=== PATIENT | female | born 1985 | race African-American/Black ===

== ENCOUNTER 2019-12-14 19:41 | Observation (INO) ==
[2019-12-14] MEDS ORDERED: MORPHINE 4 MG/1 ML VIAL IV STA (20:12)
[2019-12-14] MEDS ORDERED: SODIUM CHLORIDE 0.9% 500 ML IV STA (20:12)
[2019-12-14] MEDS ORDERED: ONDANSETRON 4 MG/2 ML VIAL IV STA (20:12)
[2019-12-14] MEDS ORDERED: PIPERACILLIN/TAZOBACTAM 3,375 MG in SODIUM CHLORIDE 0.9% 100 ML IV STA (20:12)
[2019-12-14 20:39] LABS: Basophils # 0.1 10*3/uL (0.0-0.2); Basophils % 0.5 % (0.0-0.8); Eosinophils # 0.2 10*3/uL (0.0-0.87); Eosinophils % 1.2 % (0.00-10.9); Hematocrit 39.9 VOL% (35.7-47.0); Hemoglobin 12.7 GM/DL (12.0-16.0); Immature Granulocytes % 0.5 %; Immature Granulocytes Absolute 0.07 #; Lymphocytes # 3.1 10*3/uL (1.4-4.0); Lymphocytes % 20.7 % (21.3-54.2); Mean Corpuscular HGB Conc 31.8 GM/DL (32-36); Mean Corpuscular Volume 80.4 FL (87-102); Mean Platelet Volume 11.5 FL (9.6-12.0); Monocytes % 9.3 % (1.7-12.7); Neutrophils % 67.8 % (38.7-73.9); Platelet Count 271 T/CUMM (130-400); Red Blood Count 4.96 MC/CUMM (3.8-5.5); Red Cell Distribution Width 15.1 % (9.3-17.3); White Blood Count 14.8 T/CUMM (4-12)
[2019-12-14 20:57] LABS: Albumin 3.4 G/DL (3.4-5.0); Bilirubin,Total 0.4 MG/DL (0.2-1.0); Calcium 9.4 MG/DL (8.5-10.1); Osmolality,Calculated 280.9 MOS/KG (273-304); Total Protein 8.6 G/DL (6.4-8.3)
[2019-12-14] MEDS ORDERED: INSULIN REGULAR 100 UNIT/ML IV STA (21:11)
[2019-12-14] MEDS ORDERED: SODIUM CHLORIDE 0.9% 2,000 ML IV ONE (21:22)
[2019-12-14] MEDS ORDERED: GLUCAGON 1 MG VIAL IM PRN (23:11)
[2019-12-14] MEDS ORDERED: ONDANSETRON 4 MG/2 ML VIAL IV PRN (23:11)
[2019-12-14] MEDS ORDERED: hydrALAZINE 20 MG/1 ML VIAL IV PRN (23:11)
[2019-12-14] MEDS ORDERED: PIPERACILLIN/TAZOBACTAM 3,375 MG in SODIUM CHLORIDE 0.9% 100 ML IV SCH (23:11)
[2019-12-14] MEDS ORDERED: DEXTROSE 50% 25 GM/50 ML VIAL IV PRN (23:11)
[2019-12-14] MEDS ORDERED: HYDROmorphone 2 MG/1 ML VIAL IV PRN (23:11)
[2019-12-14] MEDS ORDERED: ACETAMINOPHEN 325 MG TABLET PO PRN (23:11)
[2019-12-14] MEDS: SODIUM CHLORIDE 0.9% 1,000 ML IV SCH (23:43)
[2019-12-14] MEDS: INSULIN REGULAR 100 UNIT/ML SUBCUT SCH (23:56)
[2019-12-15] MEDS ORDERED: PIPERACILLIN/TAZOBACTAM 3,375 MG in SODIUM CHLORIDE 0.9% 100 ML IV SCH (05:30)
[2019-12-15] MEDS ORDERED: ALBUTEROL 2.5 MG/3 ML NEB RESP TX PRN (06:07)
[2019-12-15] MEDS: INSULIN REGULAR 100 UNIT/ML SUBCUT SCH ×4 (06:19→17:57)
[2019-12-15] MEDS ORDERED: DIAZEPAM 5 MG TABLET PO ONE (06:52)
[2019-12-15 06:56] LABS: Basophils # 0.1 10*3/uL (0.0-0.2); Basophils % 0.4 % (0.0-0.8); Eosinophils # 0.2 10*3/uL (0.0-0.87); Eosinophils % 1.6 % (0.00-10.9); Hematocrit 34.7 VOL% (35.7-47.0); Hemoglobin 10.8 GM/DL (12.0-16.0); Immature Granulocytes % 0.4 %; Immature Granulocytes Absolute 0.06 #; Lymphocytes # 3.4 10*3/uL (1.4-4.0); Lymphocytes % 23.8 % (21.3-54.2); Mean Corpuscular HGB Conc 31.1 GM/DL (32-36); Mean Platelet Volume 11.5 FL (9.6-12.0); Monocytes % 9.7 % (1.7-12.7); Neutrophils % 64.1 % (38.7-73.9); Platelet Count 230 T/CUMM (130-400); Red Blood Count 4.23 MC/CUMM (3.8-5.5); Red Cell Distribution Width 15.2 % (9.3-17.3); White Blood Count 14.2 T/CUMM (4-12)
[2019-12-15 07:28] LABS: Albumin 2.7 G/DL (3.4-5.0); Bilirubin,Total 0.5 MG/DL (0.2-1.0); Calcium 7.9 MG/DL (8.5-10.1); Osmolality,Calculated 284.4 MOS/KG (273-304); Total Protein 6.8 G/DL (6.4-8.3)
[2019-12-15] MEDS: ENOXAPARIN 40 MG/0.4 ML SYRINGE SUBCUT SCH (09:00)
[2019-12-15] MEDS: lisinopriL 2.5 MG TABLET PO SCH (09:10)
[2019-12-15] MEDS ORDERED: LIDOCAINE 1%/EPI INJ 20 ML VIAL ONE (09:38)
[2019-12-15] MEDS ORDERED: BUPIVACAINE MPF 0.25% 30 ML VIAL ONE (09:38)
[2019-12-15] MEDS ORDERED: ALBUTEROL/IPRATROPIUM 3 ML NEB RESP TX ONE ×2 (10:31→10:41)
[2019-12-15] MEDS ORDERED: LIDOCAINE 2% 5 ML VIAL ONE (10:39)
[2019-12-15] MEDS ORDERED: propofoL 200 MG/20 ML VIAL IV ONE (10:39)
[2019-12-15] MEDS ORDERED: ROCURONIUM 100 MG/10 ML VIAL IV ONE (10:40)
[2019-12-15] MEDS ORDERED: ONDANSETRON 4 MG/2 ML VIAL ONE (10:40)
[2019-12-15] MEDS ORDERED: ALBUTEROL INHALER 18 GM INH ONE (10:40)
[2019-12-15] MEDS ORDERED: SUCCINYLCHOLINE 200 MG/10 ML VIAL ONE (10:40)
[2019-12-15] MEDS ORDERED: MIDAZOLAM 2 MG/2 ML VIAL ONE (10:40)
[2019-12-15] MEDS ORDERED: fentaNYL 100 MCG/2 ML VIAL ONE (10:40)
[2019-12-15] MEDS ORDERED: PHENYLEPHRINE 0.125% NASAL DROPS 15 ML BOTTLE BOTH NARES ONE (10:40)
[2019-12-15] MEDS ORDERED: SEVOFLURANE 1 UNIT/15 MINUTE INH ONE (10:40)
[2019-12-15] MEDS ORDERED: INSULIN REGULAR 100 UNIT/ML ONE (11:19)
[2019-12-15] MEDS: SODIUM CHLORIDE 0.9% 1,000 ML IV SCH ×2 (12:49→15:11)
[2019-12-15] MEDS: PANTOPRAZOLE 40 MG TABLET PO SCH (15:06)
[2019-12-15] MEDS: SULFAMETHOX/TRIMETHOPRIM 800-160 MG TABLET PO SCH ×2 (15:06→21:06)
[2019-12-15] MEDS ORDERED: INSULIN GLARGINE 100 UNIT/ML SUBCUT SCH (21:00)
[2019-12-16] MEDS: INSULIN REGULAR 100 UNIT/ML SUBCUT SCH ×2 (00:59→06:32)
[2019-12-16] MEDS: SODIUM CHLORIDE 0.9% 1,000 ML IV SCH (01:00)
[2019-12-16 06:01] LABS: Risk Ratio 2.47; VLDL CHOLESTEROL 23.2 MG/DL
[2019-12-16] MEDS: PANTOPRAZOLE 40 MG TABLET PO SCH (09:19)
[2019-12-16] MEDS: lisinopriL 2.5 MG TABLET PO SCH (09:19)
[2019-12-16] MEDS: SULFAMETHOX/TRIMETHOPRIM 800-160 MG TABLET PO SCH (09:20)
[2019-12-16] MEDS: ENOXAPARIN 40 MG/0.4 ML SYRINGE SUBCUT SCH (09:24)
[2019-12-16 11:12] VITALS: BP 101/65
== END 2019-12-16 10:55 | disposition home or self-care (01) ==
LOC: N.EDINP 19:41 → N.ED 19:41 → SUATTDRO 21:13 → N.3E 22:23
PROVIDERS: ADMIT Nurse Practitioner; ATTEND Surgery